=== PATIENT | male | born 1935 | race Native Hawaiian/Other Pacific Islander ===

== ENCOUNTER 2017-03-12 15:02 | Emergency (ER) | payer SELFPAY ==
[2017-03-12 15:02] VITALS: PULSE 0; RESP 0
[~2017-03-12 15:02] MED LIST: ASPI81TA82 PO; ATOR20TA42 PO; GLUCTAB PO; LANO0.1212 PO; METO25 PO; OMEP20TA PO; POTA10IN2 PO; SINE50TA PO; SUMA50 PO; TAMS0.4C67 PO; VITA100020 IM
--- NOTE | 2017-03-12 15:23 | PD ---
HPI Chief Complaint: Code Blue Time Seen by Provider: 15:14 Travel History International Travel<30 days: No Contact w/Intl Traveler<30days: No Traveled to known affect area: No History of Present Illness HPI This patient is brought in in cardiac arrest. He obviously cannot provide any history or review of systems. CPR is in progress upon arrival. Patient had a witnessed cardiac arrest. Paramedics were called. They found him in asystole and he has been in asystole the entire coding event. He had a Combitube placed but fell out right before arrival. IV was placed. He had 3 rounds of epinephrine. Never regained pulse. PFSH Past Medical History Hx Anticoagulant Therapy: Yes (81MG ASPIRIN) Anemia: Yes Arthritis: Yes Blood Disorders: No Heart Rhythm Problems: No Cancer: Yes (PROSTATE) Cardiovascular Problems: Yes High Cholesterol: Yes Chemotherapy: No Chest Pain: No Congestive Heart Failure: No Cerebrovascular Accident: No Coronary Artery Disease: Yes Diabetes: Yes Diminished Hearing: No Endocrine: Yes Gastrointestinal Disorders: Yes GERD: Yes Genitourinary: Yes Headaches: Yes Hypertension: Yes Immune Disorder: No Implanted Vascular Access Dvce: Yes Musculoskeletal: Yes (CHRONIC NECK PAIN) Neurologic: Yes Parkinson's Disease: Yes Psychiatric: No Reproductive: No Respiratory: No Pneumonia: Yes Radiation Therapy: Yes (HAS HAD A PROTON BEAM) Seizures: No Ulcer: Yes PNEUMOCCOCAL Vaccine (Year): 1 Past Surgical History Abdominal Surgery: No Body Medical Devices: L INGUINAL HERNIA MESH Cardiac Surgery: Yes (CABG TRIPLE 2003) Ear Surgery: No Endocrine Surgery: No Eye Surgery: No Genitourinary Surgery: Yes (BILATERAL HERNIA) Joint Replacement: Yes (BILATERAL KNEES) Neurologic Surgery: Yes Oral Surgery: Yes Pacemaker: No Other Surgery: Yes Social History Alcohol Use: Yes (WINE DAILY) Tobacco Use: No Substance Use: No Allergies-Medications (Allergen,Severity, Reaction): Coded Allergies: latex (Unverified Allergy, Severe, Rash, 01/12/17) Reported Meds & Prescriptions Reported Meds & Active Scripts Active Reported Sinemet Cr 50/200 (Carbidopa/Levodopa) Tabcr 1 Tabcr PO 5 TIMES A DAY Potassium Chloride ER 10 meq (Potassium Chloride) 10 Meq Cap 1 Cap PO DAILY Lanoxin (Digoxin) 0.125 Mg Tab 0.125 Mg PO DAILY Imitrex 50 Mg Tab (Sumatriptan Succinate) 50 Mg Tab 100 Mg PO DIRECTED PRN Metoprolol Tartrate 25 mg (Metoprolol Tartrate) 25 Mg Tab 25 Mg PO DAILY Lipitor (Atorvastatin Calcium) 20 Mg Tab 20 Mg PO DAILY Vitamin B-12 (Cyanocobalamin) 1,000 Mcg Inj 1,000 Mcg IM Q30D Omeprazole 20 mg (Omeprazole) 20 Mg Tab 20 Mg PO DAILY Flomax (Tamsulosin HCl) 0.4 Mg Cap 0.4 Mg PO DAILY TAKE 1/2HR. AFTER DINNER Aspir-81 (Aspirin) 81 Mg Tab 81 Mg PO DAILY Metformin (Metformin HCl) 500 Mg Tab 500 Mg PO BID Review of Systems ROS Limitations: Clinical Condition, Unresponsive Physical Exam Narrative GENERAL: Thin malnourished elderly well-developed patient who is unresponsive . SKIN: Focused skin assessment reveals no rash and nodules. Skin is Warm and dry. HEAD: Atraumatic. Normocephalic. EYES: Pupils equal and round. No scleral icterus. No injection or drainage. ENT: No nasal bleeding or discharge. Mucous membranes pink and moist. NECK: Trachea midline. No JVD. CARDIOVASCULAR: He is pulseless. CPR in progress RESPIRATORY: No spontaneous respiratory effort GASTROINTESTINAL: Abdomen soft, non-tender, nondistended. Hepatic and splenic margins not palpable. MUSCULOSKELETAL: No obvious deformities. No clubbing. No cyanosis. No edema. Interosseous in position right tibia NEUROLOGICAL: Extend dilated pupils. Impossible to test motor strength or sensation. He is nonverbal. No response to pain. GCS 3 PSYCHIATRIC: Impossible to test mood and affect; insight and judgment abnormal MDM Medical Decision Making Medical Screen Exam Complete: Yes Emergency Medical Condition: Yes Medical Record Reviewed: Yes Differential Diagnosis Cardiac arrest, cardiac arrhythmia, PE Narrative Course I have reviewed the patient's electronic medical record. Patient was last seen here in 2014 This patient arrives in full cardiac arrest. At the time of arrival he's been down in asystole for at least 30 minutes and had 3 rounds of epinephrine and CPR at all time He looks very chronically ill. Paramedics report that he has multiple terminal illnesses. He has no response to pain and no spontaneous respiratory activity and is pulseless and has fixed dilated pupils. He has no corneal reflex. I did a bedside transabdominal ultrasound of his heart. There is no spontaneous useful cardiac activity. I pronounced him and will go speak to caregiver and son Diagnosis Primary Impression: Cardiopulmonary arrest Disposition: 20 Condition: Rosendo Kathleen MD Mar 12, 2017 15:23
== END 2017-03-12 17:29 | disposition expired ==
LOC: PHED 15:02
DX: I46.9 Cardiac arrest, cause unspecified (principal)
CPT/HCPCS: 92950